=== PATIENT | female | born 1970 | race Caucasian/White ===

== ENCOUNTER 2017-04-23 08:30 | Day surgery (SDC) | payer OTHER ==
[~2017-04-23 08:30] MED LIST: Buffered Lidocaine 0.9% SYRIN* 5 ML/SYR SYRINGE INTRADERM ONE; Dexamethasone IV* 4 MG/ML 1 ML (4 MG) IV SLOW PU ONE; Famotidine IV* 10 MG/ML 2 ML (20 mg) IV ONE
[2017-04-23] MEDS ORDERED: Scopolamine 1.5 mg* PATCH ONE (08:38)
[2017-04-23] MEDS ORDERED: fentaNYL* 50 MCG/ML 2 ML VIAL (100 MCG VIAL) ONE (08:41)
[2017-04-23] MEDS ORDERED: Midazolam* 1 MG/ML 2 ML VIAL (2 MG) ONE ×2 (08:41→09:12)
[2017-04-23] MEDS ORDERED: Lidocaine 1% INJ* 10 MG/ML 30 ML SDV ONE (08:43)
[2017-04-23] MEDS ORDERED: Naloxone* 0.4 MG/ML 1 ML VIAL IV PRN (09:31)
[2017-04-23] MEDS ORDERED: Ibuprofen TAB* 600 MG PO PRN (09:33)
[2017-04-23] MEDS ORDERED: oxyCODONE/Acetamin 5/325 MG* TAB PO PRN (09:33)
[2017-04-23 11:06] VITALS: BP 116/57
--- NOTE | 2017-04-23 21:14 | OP ---
DATE OF OPERATION: 04/23/17 - [facility] DATE OF : 66 SURGEON: Dr. Ryan. ANESTHESIOLOGIST: Dr. Farr. ANESTHESIA: Spinal. PRE-OP DIAGNOSIS: Right Bartholin's cyst. POST-OP DIAGNOSIS: Right Bartholin's cyst. OPERATIVE PROCEDURE: Marsupialization of right Bartholin's with biopsy. ESTIMATED BLOOD LOSS: Minimal. Less than 20 cc. FINDINGS: A 4 cm right Bartholin's cyst, otherwise normal-appearing perineum, normal-appearing left labia. COMPLICATIONS: None. COUNTS: Sponge, lap and needle counts were correct x2. PATHOLOGY SPECIMEN: Biopsy of the base of the cyst of the right Bartholin's. POSTOP CONDITION: The patient was brought to recovery room awake and in stable condition. DESCRIPTION OF PROCEDURE: The patient was brought to the operating room. Once spinal anesthesia was found to be adequate, the patient was prepped and draped in the usual sterile fashion in the dorsal lithotomy position. Time-out was performed. A 1.5 cm incision was made on the inner aspect of the right labia majora into the vaginal mucosa. Copious amounts of cloudy fluid was drained. There were no loculations within the cyst. The cyst wall was sewn to the vaginal mucosa with 6 interrupted 3-0 Vicryl sutures. The base of the cyst was biopsied and sent to pathology. Excellent hemostasis was achieved. Sponge, lap and needle count were correct x2 and the patient was brought to recovery room, awake and in stable condition. [id number]/[facility] #: [id number] MTDD
== END 2017-04-23 10:57 | disposition home or self-care (01) ==
LOC: OR 08:30
PROVIDERS: ATTEND Obstetrics & Gynecology
DX: N75.0 Cyst of Bartholin's gland (principal); N92.0 Excessive and frequent menstruation with regular cycle; J45.909 Unspecified asthma, uncomplicated; M85.80 Other specified disorders of bone density and structure, unspecified site; F41.9 Anxiety disorder, unspecified
CPT/HCPCS: 36415; 81025; 86850; 86900; 86901; 88304; A9270-GY; J2250; J3010

== ENCOUNTER 2017-08-15 13:21 | Emergency (ER) | payer OTHER ==
[2017-08-15] MEDS ORDERED: Ketorolac INJ* 60 MG/2 ML VIAL IM ONE (13:40)
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
[2017-08-15 15:29] VITALS: BP 131/59
== END 2017-08-15 15:23 | disposition home or self-care (01) ==
LOC: ED 13:21
DX: M54.2 Cervicalgia (principal); M54.5 Low back pain; V43.52XA Car driver injured in collision with other type car in traffic accident, initial encounter; Y92.410 Unspecified street and highway as the place of occurrence of the external cause; J45.909 Unspecified asthma, uncomplicated; F41.9 Anxiety disorder, unspecified
CPT/HCPCS: 72100; 72125; 96372; 99282; J1885

== ENCOUNTER 2019-01-10 12:47 | Emergency (ER) | payer OTHER ==
--- OUTSIDE RECORDS SUMMARY | 2019-01-10 13:47 | XMS REPORT | Continuity of Care Document ---
:1970 External Reference #:[id number] Author Name Erlin Ryan MD (transmitted by agent of provider Violeta León) Address [address] [place] [address] Problems Description No Information Available Social History Type Date Description Comments Sex Unknown Tobacco Use Start: Unknown Patient has never smoked Smoking Status Reviewed: 12/30/18 Patient has never smoked Exercise Type/Frequency Exercises regularly Allergies, Adverse Reactions, Alerts Description No Known Drug Allergies Medications Active Medications SIG Qnty Indications Ordering Provider Date Tranexamic Acid 2 tablets by 30tabs Erlin Ryan MD 09/16/2018 650mg mouth three times Tablets a day up to 5 days as needed during heavy menses Naproxen one tablet by 30tabs N94.5 Erlin Ryan MD 04/21/2018 500mg Tablets mouth q12 prn strong pain Sertraline HCL 1 by mouth every Unknown 100mg day Tablets Symbicort 1 puff twice a Unknown 80-4.5mcg/Act day Aerosol Montelukast Sodium 1 by mouth every Unknown 10mg day Tablets Zyrtec Allergy 1 by mouth as Unknown 10mg needed Tablets Immunizations Description No Information Available Vital Signs Date Vital Result Comment 12/30/2018 8:10am Height 63 inches 5'3" Weight 157.00 lb Heart Rate 70 /min BP Systolic 107 mmHg BP Diastolic 74 mmHg O2 % BldC Oximetry 97 % BMI (Body Mass Index) 27.8 kg/m2 Last Menstrual Period [id number] 10/18/2018 2:59pm Height 63 inches 5'3" Weight 158.00 lb Heart Rate 70 /min BP Systolic 136 mmHg BP Diastolic 64 mmHg O2 % BldC Oximetry 98 % BMI (Body Mass Index) 28.0 kg/m2 Results Test Date Facility Test Result H/L Range Note Laboratory test 10/18/2018 [facility] Surgical SEE RESULT [address] [place] [address] [phone] Laboratory test 10/17/2018 [facility] HCG < 0.60 [address] mIU/[place] [address] [phone] CBC Auto Diff 09/19/2018 [facility] White Blood 6.3 10^3/uL Normal 3.5-10.[address] [place] [address] [phone] Red Blood Count 4.66 10^6/uL Normal 3.70-4.87 Hemoglobin 13.8 g/dL Normal 12.0-16.0 Hematocrit 40 % Normal 35-47 Mean Corpuscular Volume 87 fL Normal 80-97 Mean Corpuscular Hemoglobin 30 pg Normal 27-31 Mean Corpuscular HGB Conc 34 g/dL Normal 31-36 Red Cell Distribution Width 14 % Normal 10-15 Platelet Count 304 10^3/uL Normal 150-450 Mean Platelet Volume 7.4 fL Normal 7.4-10.4 Abs Neutrophils 3.7 10^3/uL Normal 1.5-7.7 Abs Lymphocytes 2.0 10^3/uL Normal 1.0-4.8 Abs Monocytes 0.4 10^3/uL Normal 0-0.8 Abs Eosinophils 0.1 10^3/uL Normal 0-0.6 Abs Basophils 0.1 10^3/uL Normal 0-0.2 Abs Nucleated RBC 0.0 10^3/uL Granulocyte % 58.5 % Lymphocyte % 31.9 % Monocyte % 6.4 % Eosinophil % 2.2 % Basophil % 1.0 % Nucleated Red Blood Cells % 0.2 Laboratory 09/19/2018 [facility] TSH (Thyroid 0.77 Normal 0.34 -5.60 test finding [address] Stim Horm) mcIU/[place] [address] [phone] FSH (Follicle Stim Hormone) 4.8 mIU/mL 3 1 SEE RESULT BELOW Name: ARLETH QUEEN : [address]: Erlin Ryan MD Acct: [id number] Unit: [id number] AGE: 48 Location: [facility] Re10/18/18 SEX: F Status: REG REF SPEC: [id number] SUSAN: 10/18/18-1539 [facility] DR: Erlin Ryan MD REQ: [id number] RECD: 10/18/18 STATUS: SOUT _ ORDERED: LEVEL 4 COMMENTS: [id number] FINAL DIAGNOSIS Uterus, endometrium, biopsy: -- Inactive endometrial mucosa. -- No evidence of hyperplasia or malignancy. PRE-OPERATIVE DIAGNOSIS Prolonged, heavy menses, menses today, day 3 GROSS DESCRIPTION The specimen is received in formalin with no source identified and a requisition labeled, Endometrial Biopsy, and consists of a 2.1 x 1.4 x 0.5 cm aggregate of red- brown blood clot and scant possible soft tissue fragments. The specimen is filtered and submitted entirely in one cassette. Signed by and Reported on: Myah Munoz MD 10/20/18 1050 END OF REPORT DEPARTMENT OF PATHOLOGY, [address] [place] [address] Fausto Diamond M.D. Director [facility] # [id number] 2 <5.0 Negative 5.0 - 25.0 Indeterminate (Repeat testing recommended after 72 hours) >25.0 Positive Perimenopausal women can display HCG levels of up to 20 mIU/mL 3 Normally menstruating females - Follicular phase 3 - 9 - Mid-cycle peak 4 - 23 - Luteal phase 1 - 6 Postmenopausal females 16 - 114 Procedures Date Code Description Status 12/30/2018 62136 Insert Intrauterine Device Completed 10/18/2018 58221 Endometrial Sampling W Or W/O Endocervical BX W Or W/O Completed Cerv Dilat 03/28/2018 [id number] Mammogram Completed Medical Devices Description No Information Available Encounters Description No Information Available Assessments Date Code Description Provider 12/30/2018 Z30.430 Encounter for insertion of intrauterine Erlin Ryan MD contraceptive device 12/30/2018 N88.8 Other specified noninflammatory disorders of Erlin Ryan MD cervix uteri 10/18/2018 N92.1 Excessive and frequent menstruation with Erlin Ryan MD irregular cycle 10/18/2018 N94.6 Dysmenorrhea, unspecified Erlin Ryan MD 10/18/2018 Z32.02 Encounter for test, result negative Erlin Ryan MD Plan of Treatment Future Appointment(s):01/30/2019 10:30 am - Erlin Ryan MD at [facility] at Pqrwibng50/04/2019 - Erlin Ryan MDZ30.430 Encounter for insertion of intrauterine contraceptive deviceNew Orders:IUD-Mirena, Ordered: Comments:Recommend call if experiences pain/heavy bleeding/abn vaginal discharge/fever. recommend Ibuprofen prn today and heat pack lower abdomen and/ or lower back prn cramping.Follow up:String check with me in approximately 4 [id number] Other specified noninflammatory disorders of cervix uteriFollow up: re evaluate at string check appt Functional Status Description No Information Available Mental Status Description No Information Available Referrals Description No Information Available
[2019-01-10 13:57] VITALS: BP 130/77
--- NOTE | 2019-01-10 14:04 | UC ---
Eye Complaint HPI - HPI Summary HPI Summary: 48-year-old female presents with onset of left lower eyelid pain and swelling yesterday. States she had a little crusting in the corner of her eye this morning. Also notes that her allergies have been bad recently and is having some pressure in the right maxillary sinus. Denies fever, chills, injury, eye pain, eye redness, visual disturbances, or photophobia. - History of Current Complaint Chief Complaint: UCGeneralIllness Stated Complaint: EYE ISSUE Hx Obtained From: Patient Pain Intensity: 3 - Allergies/Home Medications Allergies/Adverse Reactions: Allergies Allergy/AdvReac Type Severity Reaction Status Date / Time codeine Allergy Nausea Verified 08/15/17 13:26 PMH/Surg Hx/FS Hx/Imm Hx Respiratory History: Asthma Psychological History: Depression - Surgical History Surgical History: Yes Surgery Procedure, Year, and Place: KNEE SURGERY AT AGE 12 - Family History Known Family History: Negative: Cardiac Disease, Hypertension, Diabetes, Renal Disease, Respiratory Disease, Seizure Disorder, Blood Disorder - Social History Occupation: Employed Full-time Lives: With Family Alcohol Use: Occasionally Substance Use Type: None Smoking Status (MU): Never Smoked Tobacco Review of Systems All Other Systems Reviewed And Are Negative: Yes Constitutional: Negative: Fever, Chills Eyes: Negative: Blurred Vision, Diplopia, Drainage, Eye Redness, Photophobia ENT: Positive: Nasal Discharge, Sinus Congestion, Sinus Pain/Tenderness. Negative: Sore Throat, Ear Ache Respiratory: Negative: Cough Cardiovascular: Positive: Negative Gastrointestinal: Positive: Negative Genitourinary: Positive: Negative Musculoskeletal: Positive: Negative Neurological: Positive: Negative Is Patient Immunocompromised?: No Physical Exam - Summary Physical Exam Summary: GENERAL APPEARANCE: Well developed, well nourished, alert and cooperative, and appears to be in no acute distress. EYES: Mild swelling of the left lower eyelid. Internal hordeolum noted to the left lower eyelid. Conjunctiva clear. No drainage. PERRL, EOM intact. Vision is grossly intact. EARS: External auditory canals and tympanic membranes clear, hearing grossly intact. NOSE: Mild nasal congestion. No nasal discharge. Maxillary sinus tenderness. THROAT: Pharynx normal. No tonsilar inflammation, swelling, exudate, or lesions. Uvula midline. NECK: Neck supple, non-tender without lymphadenopathy. CARDIAC: Normal S1 and S2. No S3, S4 or murmurs. Rhythm is regular. There is no peripheral edema, cyanosis or pallor. Extremities are warm and well perfused. Capillary refill is less than 2 seconds. Peripheral pulses intact. LUNGS: Clear to auscultation without rales, rhonchi, wheezing or diminished breath sounds. ABDOMEN: Positive bowel sounds. Soft, nondistended, nontender. No guarding or rebound. No masses or hepatosplenomegally. MUSKULOSKELETAL: ROM intact to all extremities. No joint erythema or tenderness. Normal muscular development. Normal gait. SKIN: Skin normal color, texture and turgor with no lesions or eruptions. Triage Information Reviewed: Yes Vital Signs: Initial Vital Signs Temp 97.6 F 01/10/19 13:50 Pulse 75 01/10/19 13:50 Resp 18 01/10/19 13:50 BP 130/77 01/10/19 13:50 Pulse Ox 99 01/10/19 13:50 Vital Signs Reviewed: Yes Eye Complaint Course/Dx - Course Course Of Treatment: 48-year-old female presents with onset of left lower eyelid pain and swelling yesterday. States she had a little crusting in the corner of her eye this morning. Also notes that her allergies have been bad recently and is having some pressure in the right maxillary sinus. Denies fever, chills, injury, eye pain, eye redness, visual disturbances, or photophobia. Afebrile. Vital signs stable. Patient had mild swelling of the left lower eyelid. Internal hordeolum noted to the left lower eyelid. Conjunctiva clear. No drainage. PERRL, EOM intact. Vision is grossly intact. She was also noted some mild nasal congestion and tenderness over the left maxillary sinus. Discussed findings with the patient. Although it is unlikely some of her symptoms could be related to her sinus symptoms however if this is the case the underlying cause is likely either allergy or viral related and it would not require antibiotics at this time. Recommending conservative treatment for an internal hordeolum of the left lower eyelid. She is to follow-up with ophthalmology in 3 days if symptoms are not improving. Anticipatory guidance and warning symptoms are reviewed with the patient. Verbalizes understanding and agrees with plan of care. - Differential Dx/Diagnosis Differential Diagnosis/HQI/PQRI: Conjunctivitis, Foreign Body, Periorbital Cellulitis, Orbital Cellulitis, Other - hordeolum Provider Diagnosis: Internal hordeolum of left eye Discharge ED - Sign-Out/Discharge Documenting (check all that apply): Patient Departure All imaging exams completed and their final reports reviewed: No Studies - Discharge Plan Condition: Stable Disposition: HOME Patient Education Materials: Stye (ED) Referrals: No Primary Care Phys,NOPCP [Primary Care Provider] - Fabian Torrez MD [Medical Doctor] - 3 Days Additional Instructions: Your exam is consistent with an internal hordeolum (stye) of the left lower eye lid caused by an blockage of one of the glands that help lubricate the eye. These typically resolve on their own over a few days. Apply a warm moist compress to the eye for 15 minutes at least 4 times a day. Follow-up with ophthalmology in 3 days if symptoms are not improving. Seek immediate medical attention if you have worsening pain, pain in the eye, increased swelling of the eyelid(s), visual disturbances, or any worsening of symptoms. - Billing Disposition and Condition Condition: STABLE Disposition: Home
== END 2019-01-10 14:30 | disposition home or self-care (01) ==
LOC: UCEAST 12:47
DX: H00.025 Hordeolum internum left lower eyelid (principal); J34.89 Other specified disorders of nose and nasal sinuses; J45.909 Unspecified asthma, uncomplicated; Z88.5 Allergy status to narcotic agent
CPT/HCPCS: 99212; G0463

== ENCOUNTER 2023-12-29 08:36 | Observation (INO) ==
[2023-12-29 09:46] LABS: ABS Basophils 0.1 10^3/uL (0.0-0.1); ABS Eosinophils 0.2 10^3/uL (0.0-0.5); ABS Lymphocytes 1.7 10^3/uL (1.0-4.8); ABS Monocytes 0.4 10^3/uL (0.0-0.9); ABS Neutrophils 4.4 10^3/uL (1.5-7.6); Eosinophil % 3.2 %; Hematocrit 39.5 % (35-45); Hemoglobin 13.2 g/dL (11.5-14.3); Lymphocyte % 25.2 %; Mean Corpuscular Hemoglobin 27.5 pg (27-33); Mean Corpuscular Hgb Conc 33.3 g/dL (31-36); Mean Corpuscular Volume 82.7 fL (80-97); Platelet Count 276 10^3/uL (150-450); Red Blood Count 4.78 10^6/uL (3.63-4.92); Red Cell Distribution Width 14.9 % (12-17); White Blood Count 6.8 10^3/uL (3.8-11.8)
[2023-12-29 10:51] LABS: Albumin 4.1 g/dL (3.2-5.2); Albumin/Globulin Ratio 1.5 (1-3); Calcium 8.9 mg/dL (8.6-10.3); Creatinine, Serum 0.92 mg/dL (0.51-0.95); Globulin 2.7 g/dL (2-4); Potassium 4.7 mmol/L (3.5-5.0); Total Bilirubin 0.3 mg/dL (0.2-1.0); Total Protein 6.8 g/dL (6.4-8.9); eGFR CKD-EPI 73.5 (>60)
[2023-12-29] MEDS: Iohexol 350 (CONTRAST) 500 ML MDV IV ONE (11:39)
[2023-12-29] MEDS ORDERED: Sulfur Hexaflouride MICROSPHR 25 MG VIAL IV PRN (13:13)
[2023-12-29 13:43] LABS: HDL Cholesterol 36.7 mg/dL
[2023-12-29] MEDS ORDERED: Levalbuterol HFA INHALER MDI INH PRN (16:51)
[2023-12-29] MEDS: Cyanocobalamin INJ 1,000 MCG/ML VIAL 1 ML VIAL IM SCH (18:33)
[2023-12-29] MEDS: Enoxaparin 40 MG/0.4 ML SYR SUBCUT SCH (18:33)
[2023-12-29] MEDS: Mometasone/Formoter 200/5 MDI INH SCH (21:39)
[2023-12-30 07:05] LABS: ABS Basophils 0.1 10^3/uL (0.0-0.1); ABS Eosinophils 0.3 10^3/uL (0.0-0.5); ABS Lymphocytes 2.7 10^3/uL (1.0-4.8); ABS Monocytes 0.5 10^3/uL (0.0-0.9); ABS Neutrophils 4.1 10^3/uL (1.5-7.6); ABS Nucleated RBC 0.01 10^3/ul; Eosinophil % 4.1 %; Hematocrit 38.6 % (35-45); Hemoglobin 12.9 g/dL (11.5-14.3); Mean Corpuscular Hemoglobin 27.4 pg (27-33); Mean Corpuscular Hgb Conc 33.3 g/dL (31-36); Mean Corpuscular Volume 82.3 fL (80-97); Mean Platelet Volume 6.9 fL (7.5-11.2); Nucleated Red Blood Cells % 0.1 %/100WBC (0.0-0.8); Platelet Count 254 10^3/uL (150-450); Red Blood Count 4.68 10^6/uL (3.63-4.92); White Blood Count 7.6 10^3/uL (3.8-11.8)
[2023-12-30 07:23] LABS: Calcium 9.1 mg/dL (8.6-10.3); Creatinine, Serum 0.86 mg/dL (0.51-0.95); Potassium 4.5 mmol/L (3.5-5.0); eGFR CKD-EPI 79.7 (>60)
[2023-12-30 07:48] LABS: Folate 10.36 ng/mL (5.90-24.80)
[2023-12-30 14:09] VITALS: BP 123/81
[2024-01-02] MEDS ORDERED: ESTRADIOL 0.025 MG/24 HR TOPICAL SCH (09:00)
== END 2023-12-30 15:11 | disposition home or self-care (01) ==
LOC: EDHOLD 08:36 → ED 08:36 → MEDTELE 15:17
PROVIDERS: ADMIT Student in an Organized Health Care Education/Training Program; ATTEND Student in an Organized Health Care Education/Training Program